=== PATIENT | female | born 1985 | race Caucasian/White ===

== ENCOUNTER 2022-12-08 11:28 | Inpatient (IN) | payer BC, MEDICAID, SELFPAY ==
[2022-12-08 11:28] VITALS: BMI 27.4
[2022-12-08 14:00] VITALS: BP 142/74; PULSE 68; RESP 16; TEMP 36.6; O2SAT 98
[2022-12-08] MEDS: acetaminophen 325 mg Tablet 650 MG PO (16:07)
--- NOTE | 2022-12-08 17:54 | W.PM.NPUH&PS ---
Providers/Chief Complaint Admitting Physician: Riki Woodruff MD Chief Complaint: SI HPI NPU History of Present Illness Sharif Higinio Jones is a 37 year old female who had presented to [facility] in [facility] through the emergency department. She reports that she had written a suicide note next to her gun and states that she would have used a gun to kill herself if she did not go out to smoke her last cigarette. Patient was transferred to the neuropsychiatric unit at [facility] for further evaluation and treatment. 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 She had reported that she had had financial stressors and she states that she had always been the one in the household who takes care of bills and manages to bring consistent income into the family. She reported that she had been extremely unhappy at that job and reports that friends and family had noticed a change in her mood for the past 4 months while working at this job. She had reported having increased anger and irritability with difficulties with feeling rested when she wakes in the morning. She reports that she had had increased thoughts of suicide only for the past 3 days and reports some feelings of hopelessness. She has reported having had episodes of depression in the past but reported no suicide attempts or any thoughts until this most recent event. She had reported that she often needs to be in control and states that she could not handle the injury of losing her job. She reported that she takes pride in her work and stated that she had felt mistreated on the job. She had reported and asked tended history of alcohol use as she reported having 2-3 drinks 3-4 times a week. She had reported a past history of more severe alcohol consumption with a past history of blackouts but no history of withdrawal symptoms. She had reported having diminished concentration recently. She denies any manic symptoms nor does she endorse any history of psychotic symptoms. She had reported occasional marijuana use for several years. Patient had endorsed an extended history of problems with chronic worry. She reports having frequent neck tension and headaches. She reports having diminished concentration and states that she has a difficult time with managing and controlling her anxiety with frequent sleep continuity disruption and irritability associated with her chronic worry. She had reported having problems with worry throughout her life. Inpatient psychiatric history: None prior to this admission. Outpatient psychiatric history: She reports no history of outpatient treatment for her mood or for substance use. Drug and alcohol history: See above. She reports marijuana use for several years to manage anxiety. Medical history: Intravenous malformation, seizure history recent onset at the age of 32 Surgical history: None currently although she has an appointment with a neurosurgeon in the near future. Allergies: No known drug allergies Legal history: She has no legal issues noted. She has no history. Current medications: Keppra 500 mg twice a day, lisinopril 10 mg daily, lisinopril/hydrochlorothiazide 20-12.5 mg tablet daily Family psychiatric history: Generalized anxiety disorder in mother. Patient's father has a history of alcoholism. Social history: Patient lives in [facility] with her live-in boyfriend of 13 years along with her 10-year-old daughter. She reports that she was born in [place] and raised by her mother who had gone to [facility] for drug-related offenses when the patient was 14 years old and she reported having gone into foster care for 2 years. She reports that she had moved around a lot due to her mother's substance abuse issues and legal problems. She reported having dropped out of school in the 12th grade and is shelter through earning her GED. She reports having worked odd jobs and recently having worked as a microcomputer support specialist for several years. She states that she is a diligent mother and reports that she had previously been at the age of 22 but is currently . She reports having experienced some emotional abuse but denies any sexual or physical abuse. Meds NPU Allergies Allergy/AdvReac Type Severity Reaction Status Date / Time No Known Allergies Allergy Verified 12/08/22 16:06 Mental Status Exam MSE Comments: Patient is a casually dressed white female who was pleasant and cooperative on interview. Her hygiene was good. There was no evidence of any abnormal involuntary motor movements tics or tremors appreciated. Her speech was monotone but normal in rate and volume. Her gait was within normal limits. Her mood was described as down. Her affect was mood congruent and somewhat flat. She endorsed suicidal ideation with a plan to shoot herself. Her intent appeared significant. She denied any homicidal ideation. There was no clear evidence of delusional thinking. She did not appear to be responding to internal stimuli. She was very [id number] in her description of her reason for being hospitalized with evidence of isolation of affect. Her thought processes linear logical and goal-directed. Her recent remote memory were grossly intact. She denied any auditory visual hallucinations. Her recent /remote memory were intact. Her insight is poor. Her judgment is poor. Her impulse control appeared poor as well. Vitals/I&O/Wt Last Vital Signs Temp 98 F 12/08/22 14:00 Pulse 68 12/08/22 14:00 Resp 16 12/08/22 14:00 BP 142/74 12/08/22 14:00 Pulse Ox 98 12/08/22 14:00 O2 Del Method 12/08/22 14:00 Weight last 48 hrs Weight 72.575 kg A&P Assessment and plan (1) Generalized anxiety disorder: (2) AVM (arteriovenous malformation): (3) Depression, unspecified: (4) Alcohol abuse: Plan The patient is a 37-year-old white female with no previous psychiatric treatment admitted with a history of alcohol use with significant depressed mood suicidal ideation and generalized anxiety disorder. 1.? Engage patient in individual ,milieu, and group therapy 2. We will attempt to gather collateral information from previous providers 3. ? TO-15 minute checks on the unit. 4.? Recommend sober living treatment at the highest level of care to which the patient is willing to commit. 5. [facility] protocol, restart medications. 6. SSRI to target depression/GERALDINE. Involuntary Hold Information 96 Hour Hold: 96 Hour Involuntary Admission: No Attestations NPU Medical Necessity Statement*: Inpatient hospitalization is medically necessary and deemed to be the clinically appropriate intervention at this time. We will initiate medications and make changes as indicated. She will be in the hospital for over 2 midnights. Her likely length of stay is 5 to 7 days. Coding Level of Care Code Acute Code for g Fwd Diagnoses Generalized anxiety disorder F41.1 AVM (arteriovenous malformation) Q27.30 Depression, unspecified F32.A Alcohol abuse F10.10
[2022-12-08] MEDS: lisinopril 10 mg Tablet PO (18:17)
[2022-12-08] MEDS: escitalopram 10 mg Tablet PO (18:17)
[2022-12-08 19:52] VITALS: BP 127/86; PULSE 76; RESP 20; TEMP 36.7; O2SAT 99
[2022-12-08] MEDS: levETIRAcetam 500 mg Tablet PO (20:10)
[2022-12-09 06:00] VITALS: BP 137/92; PULSE 73; RESP 18; TEMP 36.5; O2SAT 99
[2022-12-09] MEDS: thiamine 100 mg Tablet PO (08:40)
[2022-12-09] MEDS: folic acid 1 mg Tablet PO (08:40)
[2022-12-09] MEDS: escitalopram 10 mg Tablet PO (08:40)
[2022-12-09] MEDS: multivitamin therapeutic Tablet 1 TAB PO (08:40)
[2022-12-09] MEDS: lisinopril 10 mg Tablet PO (08:40)
[2022-12-09] MEDS: levETIRAcetam 500 mg Tablet PO ×2 (08:40→20:43)
[2022-12-09 14:00] VITALS: BP 134/88; PULSE 75; RESP 18; TEMP 36.8; O2SAT 98
[2022-12-09] MEDS: hydroCHLOROthiazide 25 mg Tablet 12.5 MG PO (15:38)
--- NOTE | 2022-12-09 17:38 | P.NPUPN_ITS ---
Subjective NPU Subjective: Patient is a 37-year-old white female with depression admitted with suicidal ideation with a plan to shoot herself with her firearm. She had continue to report feeling depressed. She stated that she still felt unsafe about returning home. She had reported feeling more jittery this morning and nervous. She reported good motivation to get better and stated that she needed and needed help for her depression and anxiety for many years. She had continued to endorse having problems with containing her worry and reported that she struggled with having difficulties with maintaining control of everything. She had reported that she did not want to consider inpatient rehabilitation for alc ohol abuse at this time. She had expressed desire to return to work eventually. Mental Status Exam MSE Comments: Patient is a casually dressed white female who was pleasant and cooperative on interview. Her hygiene was good. There was no evidence of any abnormal involuntary motor movements tics or tremors appreciated. Her speech was monotone but normal in rate and volume. Her gait was within normal limits. Her mood was described as still depressed. Her affect was mood congruent and somewhat flat. She endorsed suicidal ideation with a plan to shoot herself. Her intent appeared significant. She denied any homicidal ideation. There was no clear evidence of delusional thinking. She did not appear to be responding to internal stimuli. Continued presence of isolation of affect. Her thought processes linear logical and goal-directed. Her recent remote memory were grossly intact. She denied any auditory visual hallucinations. Her recent /remote memory were intact. Her insight is poor. Her judgment is poor. Her impulse control appeared poor as well. Vitals/I&O/Wt Last Vital Signs Temp 98.2 F 12/09/22 14:00 Pulse 75 12/09/22 14:00 Resp 18 12/09/22 14:00 BP 134/88 12/09/22 14:00 Pulse Ox 98 12/09/22 14:00 O2 Del Method Room Air 12/09/22 06:00 Weight last 48 hrs Weight 72.575 kg A&P Assessment and plan (1) Generalized anxiety disorder: (2) AVM (arteriovenous malformation): (3) Depression, unspecified: (4) Alcohol abuse: Plan The patient is a 37-year-old white female with no previous psychiatric treatment admitted with a history of alcohol use with significant depressed mood suicidal ideation and generalized anxiety disorder. 1.? Engage patient in individual ,milieu, and group therapy 2. We will attempt to gather collateral information from previous providers 3. ? TO-15 minute checks on the unit. 4.? Recommend sober living treatment at the highest level of care to which the patient is willing to commit. 5. [facility] protocol, restart medications. 6. Continue Lexapro 10mg in am to target anxiety and depression. Involuntary Hold Information 96 Hour Hold: 96 Hour Involuntary Admission: No Attestations NPU Medical Necessity Statement*: Inpatient hospitalization is medically necessary and deemed to be the clinically appropriate intervention at this time. We will initiate medications and make changes as indicated. Her likely length of stay is 5 to 7 days. Coding Level of Care Code Acute Code for [facility] Fwd Diagnoses Generalized anxiety disorder F41.1 AVM (arteriovenous malformation) Q27.30 Depression, unspecified F32.A Alcohol abuse F10.10
[2022-12-09] MEDS: cetylpyridinium Lozenge 1 EACH MUCOUS MEM (20:43)
[2022-12-09 22:00] VITALS: BP 121/84; PULSE 69; RESP 16; TEMP 36.7; O2SAT 98
--- NOTE | 2022-12-10 00:26 | PC.NURSE ---
at 2042 Keppra given on time but RN noticed it didn't scan. Med given at same time with Cepacol lozenge.
--- NOTE | 2022-12-10 00:28 | PC.NURSE ---
at 2345 pt moved to another room as roommate was anxious and pacing and not allowing patient to sleep.
[2022-12-10 06:00] VITALS: BP 133/88; PULSE 68; RESP 16; TEMP 36.8; O2SAT 99
[2022-12-10] MEDS: lisinopril 20 mg Tablet PO (09:09)
[2022-12-10] MEDS: levETIRAcetam 500 mg Tablet PO ×2 (09:09→19:46)
[2022-12-10] MEDS: folic acid 1 mg Tablet PO (09:09)
[2022-12-10] MEDS: escitalopram 10 mg Tablet PO (09:09)
[2022-12-10] MEDS: multivitamin therapeutic Tablet 1 TAB PO (09:09)
[2022-12-10] MEDS: thiamine 100 mg Tablet PO (09:09)
[2022-12-10] MEDS: hydroCHLOROthiazide 25 mg Tablet 12.5 MG PO (09:09)
[2022-12-10] MEDS: acetaminophen 325 mg Tablet 650 MG PO (12:16)
[2022-12-10 14:00] VITALS: BP 124/82; PULSE 70; RESP 18; TEMP 36.6; O2SAT 98
--- NOTE | 2022-12-10 15:14 | W.PM.NPUPNS ---
Subjective NPU Subjective: Patient is a 37-year-old white female with depression admitted with suicidal ideation with a plan to shoot herself with her firearm. The patient reported improved motivation. She had reported feeling much better. She had stated that she felt better about returning home and returning to work. She had acknowledged continued depression but stated that she had been sleeping better. She was able to attend groups and reported continued problems with energy. She had minimized any desire to use alcohol. She had reported not wanting to receive inpatient substance abuse treatment. Mental Status Exam MSE Comments: Patient is a casually dressed white female who was pleasant and cooperative on interview. Her hygiene was good. There was no evidence of any abnormal involuntary motor movements tics or tremors appreciated. Her speech was normal in rate, rhythm and volume. Her gait was within normal limits. Her mood was described as better. Her affect was mood incongruent and slightly restricted. She endorsed no suicidal ideation and denied a plan or intent. She denied any homicidal ideation. There was no clear evidence of delusional thinking. She did not appear to be responding to internal stimuli. Her thought processes was linear, logical and goal-directed. Her recent and remote memory were grossly intact. She denied any auditory or visual hallucinations. Her recent /remote memory were intact. Her insight is fair. Her judgment is improving. Her impulse control appeared to be improving. Vitals/I&O/Wt Last Vital Signs Temp 98.2 F 12/10/22 06:00 Pulse 68 12/10/22 06:00 Resp 16 12/10/22 06:00 BP 133/88 12/10/22 06:00 Pulse Ox 99 12/10/22 06:00 O2 Del Method Room Air 12/10/22 06:00 A&P Assessment and plan (1) Generalized anxiety disorder: (2) AVM (arteriovenous malformation): (3) Depression, unspecified: (4) Alcohol abuse: Plan The patient is a 37-year-old white female with no previous psychiatric treatment admitted with a history of alcohol use with significant depressed mood suicidal ideation and generalized anxiety disorder. 1.? Engage patient in individual ,milieu, and group therapy 2. ? TO-15 minute checks on the unit. 3.? Recommend sober living treatment at the highest level of care to which the patient is willing to commit. 4. Continue Lexapro 10mg in am to target anxiety and depression. Involuntary Hold Information 96 Hour Hold: 96 Hour Involuntary Admission: No Attestations NPU Medical Necessity Statement*: Inpatient hospitalization is medically necessary and deemed to be the clinically appropriate intervention at this time. Her likely length of stay is 2-3 days. Coding Level of Care Code Acute Code for g Fwd Diagnoses Generalized anxiety disorder F41.1 AVM (arteriovenous malformation) Q27.30 Depression, unspecified F32.A Alcohol abuse F10.10
[2022-12-10 19:44] VITALS: BP 115/76; PULSE 68; RESP 20; TEMP 36.9; O2SAT 96
[2022-12-11 06:00] VITALS: BP 107/74; PULSE 80; RESP 18; TEMP 36.4; O2SAT 99
[2022-12-11] MEDS: lisinopril 20 mg Tablet PO (09:07)
[2022-12-11] MEDS: multivitamin therapeutic Tablet 1 TAB PO (09:07)
[2022-12-11] MEDS: escitalopram 10 mg Tablet PO (09:07)
[2022-12-11] MEDS: hydroCHLOROthiazide 25 mg Tablet 12.5 MG PO (09:07)
[2022-12-11] MEDS: thiamine 100 mg Tablet PO (09:07)
[2022-12-11] MEDS: levETIRAcetam 500 mg Tablet PO (09:07)
[2022-12-11] MEDS: folic acid 1 mg Tablet PO (09:08)
--- NOTE | 2022-12-11 11:36 | W.PM.NPUDCS ---
Diagnoses at Discharge Discharge Diagnosis (1) Generalized anxiety disorder: Status: Acute (2) AVM (arteriovenous malformation): Status: Acute (3) Depression, unspecified: Status: Acute (4) Alcohol abuse: Status: Acute Reason for Visit Reason for Visit: SI Brief History: History of Present Illness Sharif Higinio Jones is a 37 year old female who had presented to [facility] in [facility] through the emergency department.? She reports that she had written a suicide note next to her gun and states that she would have used a gun to kill herself if she did not go out to smoke her last cigarette.? Patient was transferred to the neuropsychiatric unit at [facility] for further evaluation and treatment.? 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 She had reported that she had had financial stressors and she states that she had always been the one in the household who takes care of bills and manages to bring consistent income into the family.? She reported that she had been extremely unhappy at that job and reports that friends and family had noticed a change in her mood for the past 4 months while working at this job.? She had reported having increased anger and irritability with difficulties with feeling rested when she wakes in the morning.? She reports that she had had increased thoughts of suicide only for the past 3 days and reports some feelings of hopelessness.? She has reported having had episodes of depression in the past but reported no suicide attempts or any thoughts until this most recent event.? She had reported that she often needs to be in control and states that she could not handle the injury of losing her job.? She reported that she takes pride in her work and stated that she had felt mistreated on the job.? She had reported and asked tended history of alcohol use as she reported having 2-3 drinks 3-4 times a week.? She had reported a past history of more severe alcohol consumption with a past history of blackouts but no history of withdrawal symptoms.? She had reported having diminished concentration recently.? She denies any manic symptoms nor does she endorse any history of psychotic symptoms.? She had reported occasional marijuana use for several years.? Patient had endorsed an extended history of problems with chronic worry.? She reports having frequent neck tension and headaches.? She reports having diminished concentration and states that she has a difficult time with managing and controlling her anxiety with frequent sleep continuity disruption and irritability associated with her chronic worry.? She had reported having problems with worry throughout her life.? Inpatient psychiatric history: None prior to this admission. Outpatient psychiatric history: She reports no history of outpatient treatment for her mood or for substance use. Drug and alcohol history: See above.? She reports marijuana use for several years to manage anxiety. Medical history: Intravenous malformation, seizure history recent onset at the age of 32 Surgical history: None currently although she has an appointment with a neurosurgeon in the near future. Allergies: No known drug allergies Legal history: She has no legal issues noted.? She has no history. Current medications: Keppra 500 mg twice a day, lisinopril 10 mg daily, lisinopril/hydrochlorothiazide 20-12.5 mg tablet daily Family psychiatric history: Generalized anxiety disorder in mother.? Patient's father has a history of alcoholism. Social history: Patient lives in [place] with her live-in boyfriend of 13 years along with her 10-year-old daughter.? She reports that she was born in [place] and raised by her mother who had gone to shelter for drug-related offenses when the patient was 14 years old and she reported having gone into foster care for 2 years.? She reports that she had moved around a lot due to her mother's substance abuse issues and legal problems.? She reported having dropped out of school in the 12th grade and is alf through earning her GED.? 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 She states that she is a diligent mother and reports that she had previously been at the age of 22 but is currently .? She reports having experienced some emotional abuse but denies any sexual or physical abuse. Hospital Course Hospital Course During the hospitalization, patient had routine laboratory studies which were within normal limits except for few outliers. Additionally there was a general medical evaluation which was also within normal limits and revealed no new acute processes. At the time of discharge, lethality was denied and no evidence of psychosis during her stay. Mood and anxiety were well managed. Patient endorsed a plan to avoid all drugs of abuse and follow-up with the aftercare recommendations of the treatment team. Patient was evaluated and deemed to be absent credible lethality, and had achieved the maximum benefit from an inpatient hospitalization, so was discharged. Involuntary Hold Information 96 Hour Hold: 96 Hour Involuntary Admission: No Mental Status Exam MSE Comments: Patient is a casually dressed white female who was pleasant and cooperative on interview. Her hygiene was good. There was no evidence of any abnormal involuntary motor movements tics or tremors appreciated. Her speech was normal in rate, rhythm and volume. Her gait was within normal limits. Her mood was described as good. Her affect was brighter. She endorsed no suicidal ideation and denied a plan or intent. She denied any homicidal ideation. There was no clear evidence of delusional thinking. She did not appear to be responding to internal stimuli. Her thought processes was linear, logical and goal-directed. Her recent and remote memory were grossly intact. She denied any auditory or visual hallucinations. Her insight is fair. Her judgment is improving. Her impulse control appeared to be improving. Discharge Data Vitals: Last Vital Signs Temp 97.6 F 12/11/22 06:00 Pulse 80 12/11/22 06:00 Resp 18 12/11/22 06:00 BP 107/74 12/11/22 06:00 Pulse Ox 99 12/11/22 06:00 O2 Del Method Room Air 12/11/22 06:00 Discharge Plan Discharge Patient Disposition: Home Condition: Stable Prescriptions: New escitalopram oxalate 10 mg Tablet 10 mg PO DAILY Qty: 30 0RF Lexapro 10 mg tablet 10 mg PO DAILY 30 Days Qty: 30 0RF lisinopril 20 mg Tablet 20 mg PO DAILY Qty: 30 0RF hydrochlorothiazide 25 mg Tablet 12.5 mg PO DAILY Qty: 30 0RF levetiracetam 500 mg Tablet 500 mg PO 0900,2100 Qty: 60 1RF Discharge Orders: Discharge Order (Routine); Ordered 12/11/22 Ordered By: John Gibbs Referrals: [facility] [Other] - 12/18/22 4:20 pm (Appointment with Kellee Medina NP) [facility] - 01/20/23 4:00 pm (First time appointment in [place] 01/20/23 @ 4:[address] Arana. After will schedule in [place]. ) [employer] [facility] [Other[facility] - 12/23/22 11:00 am (Telehealth Sandra Forbes on 12/23/22 @ 11:00 am) Discharge Diet: Usual diet Discharge Activity: Resume usual activity Patient Instructions: Alcohol Abuse, Depression (DC), Suicide Prevention (DC), Opioid Safety Discharge Attestations NPU Time Spent in Discharge Care*: less than 30 min Specific Discharge Activities: Specific discharge activities: educating patient, documenting/other paperwork and evaluating patient/reviewing data Coding Level of Care Code Acute Chg FW DC note Diagnoses Generalized anxiety disorder F41.1 AVM (arteriovenous malformation) Q27.30 Depression, unspecified F32.A Alcohol abuse F10.10
[2022-12-11 11:48] VITALS: BP 107/74; PULSE 80; RESP 18; TEMP 36.4; O2SAT 99
--- NOTE | 2022-12-11 12:38 | PC.NURSE ---
discharge instruction discussed and left with patient. pt stated understanding and compliance. gave instruction of where to go to pick medication prescription at [facility]. pt belonging list went over with patient pt stated all belongings are accounted for. pt left in pov with spouse and other family members.
== END 2022-12-11 12:38 | disposition home or self-care (01) | DRG 881 ==
PROVIDERS: Admitting Provider Psychiatry & Neurology Psychiatry; Visit Provider Psychiatry & Neurology Psychiatry
DX: F32.A Depression, unspecified (principal); R45.851 Suicidal ideations; Q27.30 Arteriovenous malformation, site unspecified; F17.210 Nicotine dependence, cigarettes, uncomplicated; F10.10 Alcohol abuse, uncomplicated; F41.1 Generalized anxiety disorder; F12.10 Cannabis abuse, uncomplicated
CPT/HCPCS: 97150; 97165